=== PATIENT | female | born 1980 | race Caucasian/White ===

== ENCOUNTER 2017-06-04 05:54 | Day surgery (SDC) | payer OTHER ==
[2017-06-04 06:59] LABS: ADD MAN DIFF? NO
[2017-06-04 07:06] LABS: WHITE BLOOD COUNT 10.7 10^3/ul (4.8-10.8)
[2017-06-04 07:06] LABS: BASOPHIL # 0.1 10^3/ul (0.0-0.1); BASOPHILS % 0.8 % (0.0-2.0); EOSINOPHILS # 0.1 10^3/ul (0.0-0.5); EOSINOPHILS % 1.2 % (0.0-7.0); HEMATOCRIT 35.3 % (37.0-47.0); HEMOGLOBIN 11.1 g/dl (12.0-16.0); LYMPHOCYTES # 1.9 10^3/ul (0.8-2.9); LYMPHOCYTES % 17.9 % (15.0-51.0); MEAN CORPUSCULAR HEMOGLOBIN 22.6 pg (29.0-33.0); MEAN CORPUSCULAR HGB CONC 31.4 g/dl (32.0-37.0); MEAN CORPUSCULAR VOLUME 71.7 fl (82.0-101.0); MONOCYTE # 1.1 10^3/ul (0.3-0.9); MONOCYTES % 10.4 % (0.0-11.0); NEUTROPHIL # 7.4 10^3/ul (1.6-7.5); NEUTROPHILS % 69.3 % (39.0-77.0); PLATELET COUNT 373 10^3/UL (140-415); RED BLOOD COUNT 4.92 10^6/ul (4.20-5.40); RED CELL DISTRIBUTION WIDTH 16.9 % (11.5-14.5)
[2017-06-04] MEDS ORDERED: FENTAnyl 50 MCG/ML VIAL (07:08)
[2017-06-04] MEDS ORDERED: PROPOFOL 20 ML (07:08)
[2017-06-04] MEDS ORDERED: ROCURONIUM 50 MG INJ (07:08)
[2017-06-04] MEDS ORDERED: ONDANSETRON 4 MG INJ (07:08)
[2017-06-04] MEDS ORDERED: SUCCINYLCHOLINE CHLORIDE 100 MG/5 ML SYG IV (07:08)
[2017-06-04] MEDS ORDERED: CEFAZOLIN 1 GM INJ (07:09)
[2017-06-04] MEDS ORDERED: METOCLOPRAMIDE 10 MG INJ (07:09)
[2017-06-04] MEDS ORDERED: FENTAnyl 50 MCG/ML VIAL IV (07:30)
[2017-06-04] MEDS ORDERED: NALOXONE (0.4 MG/ML) INJ IV (07:30)
[2017-06-04] MEDS ORDERED: ONDANSETRON 4 MG INJ IV ×2 (07:30→10:30)
[2017-06-04] MEDS ORDERED: HYDROCODONE/APAP (5/325) TAB PO ×3 (07:30→10:30)
[2017-06-04] MEDS ORDERED: HYDROmorphONE 0.2 MG/ML PCA IV (07:30)
[2017-06-04] MEDS ORDERED: LACTATED RINGER'S 1,000 ML IV (07:30)
[2017-06-04] MEDS ORDERED: DIPHENHYDRAMINE 50 MG INJ IV (07:30)
[2017-06-04] MEDS ORDERED: DEXAMETHASONE 4 MG/ML 1 ML INJ (08:21)
[2017-06-04] MEDS ORDERED: THROMBIN 5000 UNIT VIAL (09:06)
[2017-06-04] MEDS ORDERED: METHYLENE BLUE 1% 10 ML INJ (09:06)
[2017-06-04] MEDS ORDERED: ATROPINE 1 MG/10 ML SYRINGE (09:38)
[2017-06-04] MEDS ORDERED: NEOSTIGMINE 3 MG/3 ML SYRINGE (09:38)
[2017-06-04] MEDS: HYDROmorphONE (0.2 MG/ML) 10ML SYG IV ×5 (10:14→10:54)
[2017-06-04] MEDS: ONDANSETRON 4 MG INJ IV (10:15)
[2017-06-04] MEDS: MEPERIDINE 25 MG INJ IV (10:15)
[2017-06-04] MEDS ORDERED: morphine 2 MG INJ IV (10:30)
[2017-06-04] MEDS ORDERED: KETOROLAC 30 MG INJ IV (10:30)
[2017-06-04] MEDS: FENTAnyl 50 MCG/ML VIAL IV (11:02)
== END 2017-06-04 15:50 | disposition home or self-care (01) ==
LOC: REC 05:54 → SDS 05:54
DX: N80.8 Other endometriosis (principal); R10.2 Pelvic and perineal pain; E66.01 Morbid (severe) obesity due to excess calories; Z68.43 Body mass index [BMI] 50.0-59.9, adult
CPT/HCPCS: 58662; 84703; 85025; 86850; 86900; 86901; 88305

== ENCOUNTER 2017-09-23 07:05 | Observation (INO) | payer OTHER ==
[2017-09-23] MEDS: LACTATED RINGER'S 1,000 ML IV (07:00)
[~2017-09-23 07:05] MED LIST: ATROPINE 1 MG/10 ML SYRINGE IV; DIPHENHYDRAMINE 50 MG INJ IV; EPHEDrine SULFATE 50 MG/5 ML SYG IV; FENTAnyl 50 MCG/ML VIAL IV; HYDROmorphONE (0.2 MG/ML) 10ML SYG IV; LABETALOL HCL 20MG INJ IV; MEPERIDINE 25 MG INJ IV; MIDAZOLAM 1 MG/ML 2 ML INJ IV; ONDANSETRON 4 MG INJ IV; OXYCODONE/ACETAMINOPHEN (5/325) TAB PO; hydrALAzine 20 MG INJ IV; morphine (1 MG/ML) 10ML SYRINGE IV
[2017-09-23] MEDS ORDERED: NEOSTIGMINE 3 MG/3 ML SYRINGE (07:46)
[2017-09-23] MEDS ORDERED: LIDOCAINE 2% (SDV) 5 ML INJ (07:46)
[2017-09-23] MEDS ORDERED: GLYCOPYRROLATE 0.4 MG INJ (07:46)
[2017-09-23] MEDS ORDERED: FENTAnyl 50 MCG/ML VIAL ×2 (07:46→11:42)
[2017-09-23] MEDS ORDERED: PROPOFOL 20 ML (07:46)
[2017-09-23] MEDS ORDERED: MIDAZOLAM 1 MG/ML 2 ML INJ (07:46)
[2017-09-23] MEDS ORDERED: ROCURONIUM 50 MG INJ (07:46)
[2017-09-23] MEDS ORDERED: DEXAMETHASONE 4 MG/ML 1 ML INJ (07:46)
[2017-09-23] MEDS ORDERED: ONDANSETRON 4 MG INJ ×2 (07:47→11:43)
[2017-09-23] MEDS ORDERED: CEFAZOLIN 1 GM INJ (08:08)
[2017-09-23] MEDS ORDERED: SUCCINYLCHOLINE CHLORIDE 100 MG/5 ML SYG IV (08:08)
[2017-09-23 08:12] LABS: ADD MAN DIFF? NO
[2017-09-23 08:14] LABS: BASOPHIL # 0.1 10^3/ul (0.0-0.1); BASOPHILS % 0.7 % (0.0-2.0); EOSINOPHILS # 0.2 10^3/ul (0.0-0.5); EOSINOPHILS % 1.3 % (0.0-7.0); HEMATOCRIT 36.2 % (37.0-47.0); HEMOGLOBIN 11.3 g/dl (12.0-16.0); LYMPHOCYTES # 1.7 10^3/ul (0.8-2.9); LYMPHOCYTES % 15.3 % (15.0-51.0); MEAN CORPUSCULAR HEMOGLOBIN 22.6 pg (29.0-33.0); MEAN CORPUSCULAR HGB CONC 31.2 g/dl (32.0-37.0); MEAN CORPUSCULAR VOLUME 72.3 fl (82.0-101.0); MEAN PLATELET VOLUME 9.2 fl (7.4-10.4); MONOCYTE # 1.2 10^3/ul (0.3-0.9); MONOCYTES % 10.2 % (0.0-11.0); NEUTROPHIL # 8.2 10^3/ul (1.6-7.5); NEUTROPHILS % 72.1 % (39.0-77.0); PLATELET COUNT 367 10^3/UL (140-415); RED BLOOD COUNT 5.01 10^6/ul (4.20-5.40); RED CELL DISTRIBUTION WIDTH 16.9 % (11.5-14.5)
[2017-09-23 08:14] LABS: WHITE BLOOD COUNT 11.4 10^3/ul (4.8-10.8)
[2017-09-23] MEDS ORDERED: HYDROmorphONE (0.2 MG/ML) 10ML SYG IV ×2 (11:43→12:00)
[2017-09-23] MEDS ORDERED: KETOROLAC 30 MG INJ (11:48)
[2017-09-23] MEDS ORDERED: DIPHENHYDRAMINE 50 MG INJ (11:49)
[2017-09-23] MEDS ORDERED: DIPHENHYDRAMINE 50 MG INJ IV ×2 (12:00)
[2017-09-23] MEDS ORDERED: FENTAnyl 50 MCG/ML VIAL IV (12:00)
[2017-09-23] MEDS ORDERED: LABETALOL HCL 20MG INJ IV (12:00)
[2017-09-23] MEDS ORDERED: morphine (1 MG/ML) 10ML SYRINGE IV ×3 (12:00)
[2017-09-23] MEDS ORDERED: EPHEDrine SULFATE 50 MG/5 ML SYG IV (12:00)
[2017-09-23] MEDS ORDERED: ATROPINE 1 MG/10 ML SYRINGE IV (12:00)
[2017-09-23] MEDS ORDERED: MIDAZOLAM 1 MG/ML 2 ML INJ IV (12:00)
[2017-09-23] MEDS ORDERED: OXYCODONE/ACETAMINOPHEN (5/325) TAB PO (12:00)
[2017-09-23] MEDS: MIDAZOLAM 1 MG/ML 2 ML INJ IV ×2 (12:01→13:15)
[2017-09-23] MEDS: FENTAnyl 50 MCG/ML VIAL IV ×2 (12:02→12:21)
[2017-09-23] MEDS: MEPERIDINE 25 MG INJ IV (12:07)
[2017-09-23] MEDS: HYDROmorphONE (0.2 MG/ML) 10ML SYG IV ×3 (12:13→14:10)
[2017-09-23] MEDS: ONDANSETRON 4 MG INJ IV (12:19)
[2017-09-23] MEDS: KETOROLAC 30 MG INJ IV ×2 (12:58→19:35)
[2017-09-23] MEDS: OXYCODONE/ACETAMINOPHEN (5/325) TAB PO (13:06)
[2017-09-23] MEDS: HYDROCODONE/APAP (5/325) TAB PO ×2 (13:46→19:54)
[2017-09-23] MEDS: morphine 2 MG INJ IV ×2 (16:45→20:28)
[2017-09-23] MEDS: SOD CHLORIDE 0.9% 1,000 ML IV (17:52)
[2017-09-24] MEDS: HYDROCODONE/APAP (5/325) TAB PO ×4 (00:14→18:06)
[2017-09-24] MEDS: SOD CHLORIDE 0.9% 1,000 ML IV (07:00)
[2017-09-24] MEDS: LACTATED RINGER'S 1,000 ML IV (07:00)
[2017-09-24] MEDS: KETOROLAC 30 MG INJ IV ×2 (08:51→20:52)
[2017-09-24] MEDS ORDERED: morphine LIQ (10 MG/5 ML) CUP PO (14:30)
[2017-09-25] MEDS: HYDROCODONE/APAP (5/325) TAB PO ×2 (02:05→06:16)
[2017-09-25] MEDS: LACTATED RINGER'S 1,000 ML IV (07:00)
[2017-09-25] MEDS: SOD CHLORIDE 0.9% 1,000 ML IV (07:00)
== END 2017-09-25 11:04 | disposition home or self-care (01) ==
LOC: SDS 07:05 → REC 15:37 → MS1 16:35
PROVIDERS: Obstetrics & Gynecology
DX: Z30.2 Encounter for sterilization (principal)
CPT/HCPCS: 58600; 85025; 86850; 86900; 86901; 88302; 99217